=== PATIENT | male | born 1955 | race African-American/Black ===

== ENCOUNTER 2022-06-16 12:47 | Inpatient (IN) | payer MEDICARE, MEDICAID ==
[~2022-06-16] VITALS: Ht 180.3 cm; Wt 89.8 kg
[2022-06-16] MEDS ORDERED: SODIUM CHLORIDE 0.9% 1,000 ML IV ONE (14:15)
[2022-06-16 15:14] LABS: BASOPHILS % 0.2 % (0.0-2.0); EOSINOPHILS % 0.1 % (0.0-5.0); HEMATOCRIT. 40.7 % (42.0-52.0); HEMOGLOBIN. 13.7 g/dL (14.0-18.0); LYMPHOCYTES % 8.3 % (20.0-50.0); MEAN CORPUSCULAR HEMOGLOBIN 29.7 pg (28.0-32.0); MEAN CORPUSCULAR VOLUME 88.6 fL (80.0-94.0); MEAN PLATELET VOLUME 8.7 fl (7.4-10.4); MONOCYTES % 11.6 % (2.0-8.0); NEUTROPHILS % 79.8 % (40.0-76.0); PLATELET 173 x1000/uL (130-400); RED CELL DISTRIBUTION WIDTH 16.1 % (11.6-14.6)
[2022-06-16 15:16] LABS: CHLORIDE 104 mEq/L (98-107)
[2022-06-16 16:26] LABS: INR 1.1; PARTIAL THROMBOPLASTIN TIME 23.6 sec (23.4-31.0); PROTHROMBIN TIME 11.4 sec (9.6-11.0)
[2022-06-16] MEDS ORDERED: ASPIRIN 325MG EC TABLET PO ONE (18:30)
[2022-06-16] MEDS ORDERED: IOHEXOL-350 100 ML BOTTLE ONE (20:29)
[2022-06-17] VITALS (7 sets, daily range): BP systolic 110–133; BP diastolic 48–80
[2022-06-17] MEDS ORDERED: ENOXAPARIN 40MG/0.4ML SYR SUBCUT SCH (09:00)
[2022-06-17] MEDS ORDERED: CEFTRIAXONE 1 G PREMIX 50 ML IV SCH (09:00)
[2022-06-17] MEDS: CEFTRIAXONE 1,000 MG in DEXTROSE 5% WATER 50 ML IV SCH (11:09)
[2022-06-17] MEDS: ACETAMINOPHEN 325MG TABLET PO PRN (11:46)
[2022-06-17 11:53] LABS: HEMATOCRIT 36.1 % (42.0-52.0); HEMOGLOBIN 12.2 g/dL (14.0-18.0); MEAN CORPUSCULAR HEMOGLOBIN 29.7 pg (28.0-32.0); MEAN CORPUSCULAR VOLUME 88.1 fL (80.0-94.0); PLATELET 156 x1000/uL (130-400); RED BLOOD CELL COUNT 4.09 mill/uL (4.7-6.1); RED CELL DISTRIBUTION WIDTH 16.2 % (11.6-14.6)
[2022-06-17 12:29] LABS: CHLORIDE 109 mEq/L (98-107)
[2022-06-17] MEDS ORDERED: APIX5TAB MT (14:05)
[2022-06-17] MEDS ORDERED: ATOR40TA70 MT (14:05)
[2022-06-17] MEDS ORDERED: METO25TA6 PO (14:05)
[2022-06-17] MEDS ORDERED: ASPI-1497 PO (14:05)
[2022-06-17] MEDS ORDERED: ALBUTEROL 6.7GM HFA INHALER ORI PRN (16:15)
[2022-06-17] MEDS: AZITHROMYCIN 500 MG in DEXT 5% WATER 250 ML IV SCH (17:22)
[2022-06-17] MEDS: APIXABAN 5 MG TABLET PO SCH (17:23)
[2022-06-17 19:39] LABS: CLARITY URINE CLEAR (CLEAR); COLOR URINE YELLOW (YELLOW); KETONES URINE NEGATIVE (NEGATIVE); LEUKOCYTE ESTERASE URINE NEGATIVE (NEGATIVE); NITRITE URINE NEGATIVE (NEGATIVE); OCCULT BLOOD URINE NEGATIVE (NEGATIVE); PROTEIN URINE NEGATIVE (NEGATIVE); SPECIFIC GRAVITY URINE 1.028 (1.005-1.030)
[2022-06-17 19:54] LABS: *AMPHETAMINES SCREEN URINE NEGATIVE (NEGATIVE); *BARBITURATES SCREEN URINE NEGATIVE (NEGATIVE); *BENZODIAZEPINES SCREEN URINE NEGATIVE (NEGATIVE); *COCAINE SCREEN URINE PRESUMTIVE POSITIVE (NEGATIVE); CANNABINOID URINE SCREEN NEGATIVE (NEGATIVE); METHADONE URINE SCREEN NEGATIVE (NEGATIVE); OPIATES URINE SCREEN NEGATIVE (NEGATIVE); PHENCYCLIDINE URINE SCREEN NEGATIVE (NEGATIVE)
[2022-06-17] MEDS: METOPROLOL TARTRATE 25MG TABLET PO SCH (21:50)
[2022-06-17] MEDS: ATORVASTATIN CALCIUM 40MG TABLET PO SCH (21:50)
[2022-06-18] VITALS: BP 118/60
[2022-06-18 04:00] VITALS: BP 114/87
[2022-06-18] MEDS: ACETAMINOPHEN 325MG TABLET PO PRN (04:37)
[2022-06-18 07:23] LABS: CHLORIDE 111 mEq/L (98-107)
[2022-06-18 07:30] LABS: HEMATOCRIT. 37.5 % (42.0-52.0); HEMOGLOBIN. 12.6 g/dL (14.0-18.0); MEAN CORPUSCULAR HEMOGLOBIN 29.5 pg (28.0-32.0); MEAN CORPUSCULAR VOLUME 88.2 fL (80.0-94.0); MEAN PLATELET VOLUME 8.8 fl (7.4-10.4); PLATELET 162 x1000/uL (130-400); RED BLOOD CELL COUNT 4.26 mill/uL (4.7-6.1); RED CELL DISTRIBUTION WIDTH 16.4 % (11.6-14.6)
[2022-06-18 08:00] VITALS: BP 132/76
[2022-06-18] MEDS: APIXABAN 5 MG TABLET PO SCH ×2 (09:20→17:07)
[2022-06-18] MEDS: ASPIRIN 81MG EC TABLET PO SCH (09:20)
[2022-06-18] MEDS: METOPROLOL TARTRATE 25MG TABLET PO SCH ×2 (09:21→21:21)
[2022-06-18] MEDS: CEFTRIAXONE 1,000 MG in DEXTROSE 5% WATER 50 ML IV SCH (11:33)
[2022-06-18 12:00] VITALS: BP 131/79
[2022-06-18] MEDS ORDERED: THIAMINE HCL 200 MG in SODIUM CHLORIDE 0.9% 98 ML IV SCH ×2 (12:30→14:00)
[2022-06-18] MEDS ORDERED: CARBIDOPA/LEVODOPA 10/100MG TABLET PO SCH (13:00)
[2022-06-18 14:56] LABS: VITAMIN B12 SERUM 284 pg/mL (211-911)
[2022-06-18 16:00] VITALS: BP 143/83
[2022-06-18] MEDS: AZITHROMYCIN 500 MG in DEXT 5% WATER 250 ML IV SCH (17:07)
[2022-06-18 20:00] VITALS: BP 119/64
[2022-06-18] MEDS: ATORVASTATIN CALCIUM 40MG TABLET PO SCH (21:21)
[2022-06-19] VITALS: BP 106/74
[2022-06-19 04:00] VITALS: BP 116/60
[2022-06-19 08:00] VITALS: BP 125/62
[2022-06-19] MEDS: METOPROLOL TARTRATE 25MG TABLET PO SCH (09:38)
[2022-06-19] MEDS: APIXABAN 5 MG TABLET PO SCH (09:38)
[2022-06-19] MEDS: ASPIRIN 81MG EC TABLET PO SCH (09:39)
[2022-06-19] MEDS: CEFTRIAXONE 1,000 MG in DEXTROSE 5% WATER 50 ML IV SCH (10:22)
[2022-06-19 12:00] VITALS: BP 120/76
[2022-06-19] MEDS ORDERED: CYANOCOBALAMIN 1000MCG/ML VIAL IM SCH (12:45)
[2022-06-19 15:03] VITALS: BP 115/45
[2022-06-19 16:00] VITALS: BP 131/63
[2022-06-19] MEDS ORDERED: THIAMINE HCL 200 MG in SODIUM CHLORIDE 0.9% 98 ML IV SCH (16:00)
[2022-06-19 17:25] LABS: PLATELET ESTIMATE NORMAL
== END 2022-06-19 17:00 | disposition home or self-care (01) | DRG 871 ==
LOC: ER 12:47 → 7EST 18:25 → ENRESERV 22:28 → 7EST 06-18 10:09
PROVIDERS: ADMIT Internal Medicine; ATTEND Internal Medicine
DX: A41.89 Other specified sepsis (principal); J12.82 Pneumonia due to coronavirus disease 2019; U07.1 COVID-19; E87.1 Hypo-osmolality and hyponatremia; N17.9 Acute kidney failure, unspecified; F14.10 Cocaine abuse, uncomplicated; D64.9 Anemia, unspecified; R29.6 Repeated falls; I10 Essential (primary) hypertension; I48.91 Unspecified atrial fibrillation; Z86.73 Personal history of transient ischemic attack (TIA), and cerebral infarction without residual deficits; Z85.46 Personal history of malignant neoplasm of prostate; Z85.05 Personal history of malignant neoplasm of liver; Z92.3 Personal history of irradiation; Z79.01 Long term (current) use of anticoagulants; Z87.891 Personal history of nicotine dependence
CPT/HCPCS: 36415; 71045; 71275; 80048; 80053; 80305; 81003; 82607; 83880; 84145; 84443; 84484; 85025; 85027; 85379; 87426; 93005; 99285; C9803; J0456; J0696; J1650; J3411; J3420; J7030; J7050; J7060; Q9967